=== PATIENT | female | born 1980 | race Asian ===

== ENCOUNTER 2019-03-06 19:20 | Emergency (ER) | payer OTHER ==
[~2019-03-06] VITALS: Ht 160 cm; Wt 90.7 kg
[~2019-03-06 19:20] MED LIST: NAUSEA MEDICATION PO; PRENATABS RX T1 EACH PO
[2019-03-06] MEDS ORDERED: CEFTRIAXONE SOD 1 GM VIAL IV ONE (19:45)
[2019-03-06] MEDS ORDERED: CEFTRIAXONE SOD 1 GM/NS 50 ML 50 ML IV ONE (19:45)
[2019-03-06 19:48] LABS: BASOPHILS # (AUTO) 0.1 (0.0-0.1); BASOPHILS % 0.4 % (0.0-1.0); EOSINOPHILS # (AUTO) 0.4 (0.0-0.4); EOSINOPHILS % 1.8 % (0.0-6.0); HEMATOCRIT 43.5 % (34.2-44.1); HEMOGLOBIN 14.7 g/dL (12.0-16.0); LYMPHOCYTES # (AUTO) 1.9 (1.0-3.2); LYMPHOCYTES % 9.1 % (18.0-39.1); MEAN CORPUSCULAR HEMOGLOBIN 25.9 pg (28-32); MEAN CORPUSCULAR HGB CONC 33.8 g/dL (31-35); MEAN CORPUSCULAR VOLUME 76.6 fL (81-99); MONOCYTES # (AUTO) 0.9 (0.2-0.8); MONOCYTES % 4.3 % (4.4-11.3); NEUTROPHILS # (AUTO) 17.4 (2.1-6.9); NEUTROPHILS % 83.7 % (38.7-80.0); PLATELET COUNT 358 x10e3/uL (140-360); RED BLOOD COUNT 5.68 x10e6/uL (3.6-5.1); RED CELL DISTRIBUTION WIDTH 12.7 % (11.7-14.4)
[2019-03-06] MEDS ORDERED: SODIUM CHLORIDE 0.9% 1000ML 1,000 ML IV STA (19:56)
--- NOTE | 2019-03-06 20:01 | NUR ---
rec'd pt in rm 7 with c/o "i have blood in my urine." placed on the monitor and iv access established. bed low/locked and pt has call espino in hand
[2019-03-06 20:04] LABS: BILIRUBIN,URINE NEGATIVE (NEGATIVE); CLARITY,URINE CLOUDY (CLEAR); COLOR,URINE ORANGE (YELLOW); KETONES,URINE TRACE (NEGATIVE); LEUKOCYTE ESTERASE ,URINE SMALL (NEGATIVE); NITRITE,URINE POSITIVE (NEGATIVE); URINE UROBILINOGEN 4 mg/dL (0.2 - 1)
[2019-03-06 20:07] LABS: ALANINE AMINOTRANSFERASE 44 IU/L (0-55); ALBUMIN 4.3 g/dL (3.5-5.0); ALKALINE PHOSPHATASE 124 IU/L (40-150); BLOOD UREA NITROGEN 11 mg/dL (7-26); BUN/CREATININE RATIO 14 (6-25); CALCIUM 10.4 mg/dL (8.4-10.2); CARBON DIOXIDE 22 mmol/L (22-29); CHLORIDE 100 mmol/L (98-107); CREATININE, SERUM 0.81 mg/dL (0.57-1.11); EST GLOMERULAR FILTRATION RATE > 60 ML/MIN (60-); GLUCOSE 214 mg/dL (74-118); SODIUM 136 mmol/L (136-145)
--- NOTE | 2019-03-06 20:07 | NUR ---
meds given per md's orders and pt has tolerated well
[2019-03-06 20:09] LABS: PROTEIN,URINE DIPSTICK 2+ (NEGATIVE)
[2019-03-06 20:17] LABS: BACTERIA,URINE FEW /HPF; EPITHELIAL CELLS,URINE FEW /LPF; RBC,URINE >50 /HPF (0-5); WBC,URINE (MAN) >50 /HPF (0-5)
--- NOTE | 2019-03-06 20:30 | NUR ---
pt able to ambulate to the br and back to room 7 with a steady gait
--- NOTE | 2019-03-06 21:42 | NUR ---
resting in bed with no s/s of distress. updated on poc/pending ordrs
[2019-03-06] MEDS ORDERED: IOPAMIDOL 370 MG/ML 200 ML INFUS..BTL INJ ONE (22:08)
[2019-03-06] MEDS ORDERED: SODIUM CHLORIDE 0.9% 50ML 50 ML ONE (22:08)
--- NOTE | 2019-03-06 22:45 | Diagnostic Imaging Report ---
EXAM: CT Abdomen and Pelvis WITH contrast INDICATION: Blood in urine ^wbc 20 ^[id number] ^2204 COMPARISON: None. TECHNIQUE: Abdomen and pelvis were scanned utilizing a multidetector helical scanner from the lung base to the pubic symphysis after administration of IV contrast. Coronal and sagittal reformations were obtained. Dose modulation, iterative reconstruction, and/or weight based adjustment of the mA/kV was utilized to reduce the radiation dose to as low as reasonably achievable. Routine protocol was performed. Scan was performed when during portal venous phase. IV CONTRAST: 150 mL of Omnipaque 300 ORAL CONTRAST: Water COMPLICATIONS: None RADIATION DOSE: Total DLP: 813.25 mGy*cm Estimated effective dose: (DLP x 0.015 x size factor) mSv CTDIvol has been reviewed. It is below the limits set by the Radiation Protocol Committee (RPC). FINDINGS: LINES and TUBES: None. LOWER THORAX: Unremarkable HEPATOBILIARY: Hepatic steatosis. Hepatomegaly. Ill-defined subcentimeter right hepatic lobe hypodensities are too small to characterize (series 2, image 33 and 22). No hepatic mass. No biliary ductal dilation. GALLBLADDER: Gallbladder is filled with gallstones. No wall thickening. SPLEEN: No splenomegaly. PANCREAS: No focal masses or ductal dilatation. ADRENALS: No adrenal nodules KIDNEYS/URETERS: Kidneys enhance symmetrically. No hydronephrosis. No cystic or solid mass lesions. Right midpole subcentimeter hypodensity is too small to characterize. No stones. GI TRACT: No abnormal distention, wall thickening, or evidence of bowel obstruction. Appendix is normal. PELVIC ORGANS/BLADDER: Bladder wall thickening and perivesical fat stranding. Hysterectomy. LYMPH NODES: No lymphadenopathy. VESSELS: Unremarkable. PERITONEUM / RETROPERITONEUM: No free air or fluid. BONES: Unremarkable. SOFT TISSUES: Abdominal wall eventration and small fat-containing supraumbilical hernia. IMPRESSION: 1. Bladder wall thickening and mild perivesical fat stranding, representing cystitis. 2. Enlarged steatotic liver. 3. Gallbladder filled with gallstones. No additional signs of cholecystitis. Signed by: Dr. Isidoro Boggs MD on 03/06/2019 10:42 PM
--- NOTE | 2019-03-06 22:52 | NUR ---
PT TO BE DC'D HOME PER DR. SEGUNDO.
--- NOTE | 2019-03-06 23:03 | NUR ---
REPORTED OFF TO DAVID VILLAGOMEZ RN FOR CONTINUITY OF CARE.
[2019-03-06] MEDS ORDERED: PYRIDIUM100 MG PO (23:46)
[2019-03-06] MEDS ORDERED: KEFLEX500 MG PO (23:46)
[2019-03-07 00:29] VITALS: BP 101/63
[2019-03-07] MEDS ORDERED: PHENAZOPYRIDINE HCL 100 MG TAB PO SCH (09:00)
== END 2019-03-07 00:04 | disposition home or self-care (01) ==
LOC: ER 19:20
DX: R30.0 Dysuria (principal); R31.9 Hematuria, unspecified; D72.829 Elevated white blood cell count, unspecified
CPT/HCPCS: 36415; 74177; 80053; 81001; 81025; 85025; 87086; 99284; J0696; J7030; Q9967

== ENCOUNTER 2020-02-13 20:38 | Inpatient (IN) | payer OTHER ==
[~2020-02-13] VITALS: Ht 157.5 cm; Wt 80.9 kg
[~2020-02-13 20:38] MED LIST changes: +KEFLEX500 MG PO; +PYRIDIUM100 MG PO
--- OUTSIDE RECORDS SUMMARY | 2020-02-13 20:42 | XMS REPORT ---
Author Author [facility] t Organization [facility] Address [address] [place] [address] Phone Unavailable Care Team Providers Care Engraving Patternmaker Name Role Phone NO, PCP PCP Unavailable Shabnam ACOSTA Unavailable Payers Payer Name Policy Type Policy Number Effective Date Expiration Date Shabnam arcos [facility] [id number] [facility] Problems Condition Name Condition Details Condition Category Status Onset Date Resolution Date Last Treatment Date Treating Clinician Comments Source Upper respiratory infection Upper respiratory infection Problem Active [facility] Allergies, Adverse Reactions, Alerts This patient has no known allergies or adverse reactions. Medications Ordered Medication Name Filled Medication Name Start Date Stop Da te Current Medication? Ordering Clinician Indication Dosage Frequency Signature (SIG) Comments Components Source Cephalexin Monohydrate (Keflex) 500 Mg Capsule Cephale heri Monohydrate (Keflex) 500 Mg Capsule 2019-03-06 00:00:00 Yes Krishna Acosta Md 50 0 Every 6 Hours [facility] Phenazopyridine Hcl (Pyridium) 100 Mg Tablet Phenazopy ridine Hcl (Pyridium) 100 Mg Tablet 2019-03-06 00:00:00 Yes Krishna Acosta Md 100 Three Times A Day [facility] Nausea Medication Nausea Medication Yes [facility] Vit #76/Iron,Carb/Fa (Prenatabs Rx Tablet) 1 Each Tablet Vit #76/Iron,Carb/Fa (Prenatabs Rx Tablet) 1 Each Tablet Yes Daily [facility] Procedures Procedure Date / Time Performed Performing Clinician Sour e Computed tomography of abdomen and pelvis with contrast 2018 00:00:00 KRISHNA ACOSTA [facility] Encounters Start Date/Time End Date/Time En[facility] Ad[facility] ID Source 2019-03-06:20:00 2019-03-07 00:04:00 Departed Emergency Room 1 KRISHNA ACOSTA [facility] [id number] [facility] Results Test Description Test Time Test Comments Results Result Comments Source CT ABDOMEN/PELVIS W 2019-03-06 22:33:00 [facility] [address] [address] Patient Name: ULISSES RÍOS MR #: [id number] : 1980 Age/Sex: 38/F Req #: [id number] Adm Physician: Ordered by: KRISHNA ACOSTA MD Report #: [id number] Location: ER Room/Bed: Procedure: [id number] CT/CT ABDOMEN/PELVIS W Exam Date: 03/06/19 Exam Time: 2203 REPORT STATUS: Signed EXAM: CT Abdomen and Pelvis WITH contrast INDICATION: Blood in urine wbc [id number] COMPARISON: None. TECHNIQUE: Abdomen and pelvis were scanned utilizing a multidetector helical scanner from the lung base to the pubic symphysis after administration of IV contrast. Coronal and sagittal reformations were obtained. Dose modulation, iterative reconstruction, and/or weight based adjustment of the mA/kV was utilized to reduce the radiation dose to as low as reasonably achievable. Routine protocol was performed. Scan was performed when during portal venous phase. IV CONTRAST: 150 mL of Omnipaque 300 ORAL CONTRAST: Water COMPLICATIONS: None RADIATION DOSE: Total DLP: 813.25 mGy*cm Estimated effective dose: (DLP x 0.015 x size factor) mSv CTDIvol has been reviewed. It is below the limits set by the Radiation Protocol Committee (RPC). FINDINGS: LINES and TUBES: None. LOWER THORAX: Unremarkable HEPATOBILIARY: Hepatic steatosis. Hepatomegaly. Ill-defined subcentimeter right hepatic lobe hypodensities are too small to characterize (series 2, image 33 and 22). No hepatic mass. No biliary ductal dilation. GALLBLADDER: Gallbladder is f illed with gallstones. No wall thickening. SPLEEN: No splenomegaly. PANCREAS: No focal masses or ductal dilatation. ADRENALS: No adrenal nodules KIDNEYS/URETERS: Kidneys enhance symmetrically. No hydronephrosis. No cystic or solid mass lesions. Right midpole subcentimeter hypodensity is too small to characterize. No stones. GI TRACT: No abnormal distention, wall thickening, or evidence of bowel obstruction. Appendix is normal. PELVIC ORGANS/BLADDER: Bladder wall thickening and perivesical fat stranding. Hysterectomy. LYMPH NODES: No lymphadenopathy. VESSELS: Unremarkable. PERITONEUM / RETROPERITONEUM: No free air or fluid. BONES: Unremarkable. SOFT TISSUES: Abdominal wall eventration and small fat-containing supraumbilical hernia. IMPRESSION: 1. Bladder wall thickening and mild perivesical fat stranding, representing cystitis. 2. Enlarged steatotic liver. 3. Gallbladder filled with gallst ones. No additional signs of cholecystitis. Signed by: Dr. Isidoro Morgan MD on 03/06/2019 10:42 PM Dictated By: ISIDORO MORGAN MD 41 Transcribed By: SHARMILA on 03/06/192241 COPY TO: KRISHNA ACOSTA MD Urine Test 2019-03-06 22:06:00 Test Item Urine Test (test code = 2106-3) NEGATIVE NEGATIVE [facility] [id number] 20:17:00* Test Item Value Reference Range Interpretation Comments Urine WBC (test code = 5821-4) >50 0-5 H [facility]Allen[facility] [id number] 20:17:00* Test Item Value Reference Range Interpretation Comments Urine RBC (test code = 28293-8) >50 0-5 H [facility] [id number] 20:17:00* Test Item Value Reference Range Interpretation Comments Urine Bacteria (test code = 63197-2) FEW NONE [facility] Epithelial [id number] 20:17:00 * Test Item Value Reference Range Interpretation Comments Urine Epithelial Cells (test code = 52148-1) [facility]W [facility]ONE [facility] Bnvsi4826-74-29 20:10:00* Test Item Value Reference Range Interpretation Comments Sodium Level (test code = 2951-2) 136 136-145 [facility]Potassium Acdkk3511-91-95 20:10:00* Test Item Value Reference Range Interpretation Comments Potassium Level (test code = 2823-3) 4.0 3.5-5.1 [facility]AllenChloride Lqjfy3528-50-18 20:10:00* Test Item Value Reference Range Interpretation Comments Chloride Level (test code = 2075-0) 100 98-107 [facility]AllenCarbon Dioxide [id number] 20:10:00* Test Item Value Reference Range Interpretation Comments Carbon Dioxide Level (test code = 2028-9) 22 22-29 [facility]AllenAnion [id number] 20:10:00* Test Item Value Reference Range Interpretation Comments Anion Gap (test code = 94648-7) 18.0 8-16 H [facility]AllenBlood Urea Jjbpbefv1849-24-76 20:10:00* Test Item Value Reference Range Interpretation Comments Blood Urea Nitrogen (test code = 3094-0) 11 7-26 [facility]AllenCreatinine2019-06-19 20:10:00* Test Item Value Reference Range Interpretation Comments Creatinine (test code = 2160-0) 0.81 0.57-1.11 [facility]AllenBUN/Creatinine Fzzvi2282-19-20 20:10:00* Test Item Value Reference Range Interpretation Comments BUN/Creatinine Ratio (test code = 3097-3) 14 6-25 [facility]AllenEstimat Glomerular Filtration Rate 2019-03-06 20:10:00* Test Item Value Reference Range Interpretation Comments Estimat Glomerular Filtration Rate (test code = 793310327) > 60 >60 Ranges were taken from the National Kidney Disease Education Program and the [facility] literature.Reference ranges:60 or greater: Ccaeyj36-63 ( for 3 consecutive months): Chronic kidney disease 15 or less: Kidney failureSouth [facility] Health System McAllenGlucose Wgxhm8545-57-04 20:10:00* Test Item Value Reference Range Interpretation Comments Glucose Level (test code = IRW7459) 214 74-118 H [facility]AllenCalcium Zasts7000-69-43 20:10:00* Test Item Value Reference Range Interpretation Comments Calcium Level (test code = 43807-0) 10.4 8.4-10.2 H [facility]AllenTotal Qeluusawz6932-20-43 20:10:00* Test Item Value Reference Range Interpretation Comments Total Bilirubin (test code = 1975-2) 0.4 0.2-1.2 [facility] McAllenAspartate Amino Transf (AST/SGOT) 2019-03-06 20:10:00* Test Item Value Reference Range Interpretation Comments Aspartate Amino Transf (AST/SGOT) (test code = Aspartate Amino Transf (AST/SGOT)) 31 5-34 [facility]AllenAlanine Aminotransferase (ALT/SGPT) 2019-03-06 20:10:00* Test Item Value Reference Range Interpretation Comments Alanine Aminotransferase (ALT/SGPT) (test code = 1742-6) 44 0-55 [facility]AllenTotal Pbmbzes9167-55-03 20:10:00* Test Item Value Reference Range Interpretation Comments Total Protein (test code = 2885-2) 8.4 6.5-8.1 H [facility] McAllenAlbumin2019-06-19 20:10:00* Test Item Value Reference Range Interpretation Comments Albumin (test code = 1751-7) 4.3 3.5-5.0 [facility]AllenGlobulin2019-06-19 20:10:00* Test Item Value Reference Range Interpretation Comments Globulin (test code = 29455-7) 4.1 2.3-3.5 H [facility]AllenAlbumin/Globulin Amezs3507-85-25 20:10:00 * Test Item Value Reference Range Interpretation Comments Albumin/Globulin Ratio (test code = 1759-0) 1.0 0.8-2.0 [facility]AllenAlkaline Hgmbuxlmhya0441-46-57 20:10:00* Test Item Value Reference Range Interpretation Comments Alkaline Phosphatase (test code = 6768-6) 124 40-150 [facility]AllenUrine Ekvoo8967-27-53 20:09:00* Test Item Value Reference Range Interpretation Comments Urine Color (test code = 5778-6) ORANGE YELLOW H [facility] McAllenUrine Gkxqexf8290-50-18 20:09:00* Test Item Value Reference Range Interpretation Comments Urine Clarity (test code = 07851-9) CLOUDY CLEAR H [facility] McAllenUrine Specific Vursyei6656-68-65 20:09:00 * Test Item Value Reference Range Interpretation Comments Urine Specific Cherry (test code = 5811-5) 1.010 1.010-1.02 5 [facility]AllenUrine [id number] 20:09:00* Test Item Value Reference Range Interpretation Comments Urine pH (test code = 91741-5) 6.5 5-7 [facility]AllenUrine Leukocyte Fheuqedq3536-14-36 20:09:00* Test Item Value Reference Range Interpretation Comments Urine Leukocyte Esterase (test code = 81015-3) SMALL NEGATIV E [facility]AllenUrine Fdmrdty7913-84-27 20:09:00* Test Item Value Reference Range Interpretation Comments Urine Nitrite (test code = 77209-9) POSITIVE NEGATIVE H [facility]AllenUrine Cdqvkfb9971-72-25 20:09:00* Test Item Value Reference Range Interpretation Comments Urine Protein (test code = 37323-8) 2+ NEGATIVE H [facility] McAllenUrine Glucose (UA)2019-03-06 20:09:00* Test Item Value Reference Range Interpretation Comments Urine Glucose (UA) (test code = 48455-0) 1+ NEGATIVE H [facility]AllenUrine Bmyrsao3824-74-75 20:09:00* Test Item Value Reference Range Interpretation Comments Urine Ketones (test code = 12624-4) TRACE NEGATIVE H [facility]AllenUrine Cbhzqpubmokt3073-59-73 20:09:00* Test Item Value Reference Range Interpretation Comments Urine Urobilinogen (test code = 59438-3) 4 0.2-1 [facility]AllenUrine Qknuaiapd4818-67-96 20:09:00* Test Item Value Reference Range Interpretation Comments Urine Bilirubin (test code = 1977-8) NEGATIVE NEGATIVE [facility]AllenUrine Xnmdg8791-93-51 20:09:00* Test Item Value Reference Range Interpretation Comments Urine Blood (test code = 97844-9) 3+ NEGATIVE [facility] McAllenWhite Blood Pzgyw8439-30-86 19:49:00* Test Item Value Reference Range Interpretation Comments White Blood Count (test code = 6690-2) 20.82 4.8-10.8 H [facility] McAllenRed Blood Ncjyi3439-27-25 19:49:00* Test Item Value Reference Range Interpretation Comments Red Blood Count (test code = 789-8) 5.68 3.6-5.1 H [facility]AllenHemoglobin2019-06-19 19:49:00* Test Item Value Reference Range Interpretation Comments Hemoglobin (test code = 22218-2) 14.7 12.0-16.0 [facility]AllenHematocrit2019-06-19 19:49:00* Test Item Value Reference Range Interpretation Comments Hematocrit (test code = 4544-3) 43.5 34.2-44.1 [facility] McAllenMean Corpuscular Xuoiez5274-10-66 19:49:00* Test Item Value Reference Range Interpretation Comments Mean Corpuscular Volume (test code = 787-2) 76.6 81-99 L [facility] McAllenMean Corpuscular Baqzfsbdsa7653-68-26 19:49:00* Test Item Value Reference Range Interpretation Comments Mean Corpuscular Hemoglobin (test code = 785-6) 25.9 28-32 L [facility] McAllenMean Corpuscular Hemoglobin Concent 2019-03-06 19:49:00* Test Item Value Reference Range Interpretation Comments Mean Corpuscular Hemoglobin Concent (test code = 786-4) 33.8 31-35 [facility] McAllenRed Cell Distribution Zotaa2376-97-37 19:49:00* Test Item Value Reference Range Interpretation Comments Red Cell Distribution Width (test code = 45451-1) 12.7 11.7 -14.4 [facility] McAllenPlatelet Xiqov5492-32-56 19:49:00* Test Item Value Reference Range Interpretation Comments Platelet Count (test code = 777-3) 358 140-360 [facility]AllenNeutrophils (%) (Auto)2019-03-06 19:49:00 * Test Item Value Reference Range Interpretation Comments Neutrophils (%) (Auto) (test code = 34236-4) 83.7 38.7-80.0 H [facility] McAllenLymphocytes (%) (Auto)2019-03-06 19:49:00 * Test Item Value Reference Range Interpretation Comments Lymphocytes (%) (Auto) (test code = 736-9) 9.1 18.0-39.1 L [facility] McAllenMonocytes (%) (Auto)2019-03-06 19:49:00* Test Item Value Reference Range Interpretation Comments Monocytes (%) (Auto) (test code = 5905-5) 4.3 4.4-11.3 L [facility]AllenEosinophils (%) (Auto)2019-03-06 19:49:00 * Test Item Value Reference Range Interpretation Comments Eosinophils (%) (Auto) (test code = 713-8) 1.8 0.0-6.0 [facility]AllenBasophils (%) (Auto)2019-03-06 19:49:00* Test Item Value Reference Range Interpretation Comments Basophils (%) (Auto) (test code = 706-2) 0.4 0.0-1.0 [facility] McAllenIM GRANULOCYTES %2019-03-06 19:49:00* Test Item Value Reference Range Interpretation Comments IM GRANULOCYTES % (test code = IM GRANULOCYTES %) 0.7 0.0- 1.0 [facility]AllenNeutrophils # (Auto)2019-03-06 19:49:00* Test Item Value Reference Range Interpretation Comments Neutrophils # (Auto) (test code = 751-8) 17.4 2.1-6.9 H [facility]AllenLymphocytes # (Auto)2019-03-06 19:49:00* Test Item Value Reference Range Interpretation Comments Lymphocytes # (Auto) (test code = 31871-6) 1.9 1.0-3.2 [facility]AllenMonocytes # (Auto)2019-03-06 19:49:00* Test Item Value Reference Range Interpretation Comments Monocytes # (Auto) (test code = 742-7) 0.9 0.2-0.8 H [facility]AllenEosinophils # (Auto)2019-03-06 19:49:00* Test Item Value Reference Range Interpretation Comments Eosinophils # (Auto) (test code = 711-2) 0.4 0.0-0.4 [facility]AllenBasophils # (Auto)2019-03-06 19:49:00* Test Item Value Reference Range Interpretation Comments Basophils # (Auto) (test code = 704-7) 0.1 0.0-0.1 [facility] McAllenAbsolute Immature Granulocyte (auto 2019-03-06 19:49:00* Test Item Value Reference Range Interpretation Comments Absolute Immature Granulocyte (auto (gary t code = Absolute Immature Granulocyte (auto) 0.15 0-0.1 H [facility]
[2020-02-13] MEDS ORDERED: SODIUM CHLORIDE 0.9% 1000ML 1,000 ML IV STA (20:55)
[2020-02-13] MEDS ORDERED: PIPER-TAZ 3.375 GM 50 ML IV ONE (20:55)
[2020-02-13] MEDS ORDERED: SODIUM CHLORIDE 0.9% 1000ML 1,000 ML IV SCH (21:00)
[2020-02-13] MEDS ORDERED: SODIUM CHLORIDE 0.9% 1000ML 1,000 ML ONE (21:04)
[2020-02-13 21:14] LABS: BASOPHILS # (AUTO) 0.1 (0.0-0.1); BASOPHILS % 0.3 % (0.0-1.0); EOSINOPHILS # (AUTO) 0.2 (0.0-0.4); EOSINOPHILS % 1.1 % (0.0-6.0); HEMATOCRIT 42.2 % (34.2-44.1); LYMPHOCYTES # (AUTO) 1.9 (1.0-3.2); LYMPHOCYTES % 10.1 % (18.0-39.1); MEAN CORPUSCULAR HEMOGLOBIN 24.8 pg (28-32); MEAN CORPUSCULAR HGB CONC 33.2 g/dL (31-35); MEAN CORPUSCULAR VOLUME 74.8 fL (81-99); MONOCYTES # (AUTO) 0.9 (0.2-0.8); MONOCYTES % 4.8 % (4.4-11.3); NEUTROPHILS # (AUTO) 15.4 (2.1-6.9); NEUTROPHILS % 83.1 % (38.7-80.0); PLATELET COUNT 366 x10e3/uL (140-360); RED BLOOD COUNT 5.64 x10e6/uL (3.6-5.1); RED CELL DISTRIBUTION WIDTH 12.4 % (11.7-14.4)
[2020-02-13] MEDS ORDERED: ONDANSETRON HCL INJ 2MG/ML 2ML 2 MG/ML VIAL IV ONE (21:14)
[2020-02-13] MEDS ORDERED: MORPHINE SULFATE 5 MG/ML VIAL IV ONE (21:15)
[2020-02-13] MEDS ORDERED: MORPHINE SULFATE INJ 4 MG/ML INJ 1ML IV ONE (21:30)
[2020-02-13 21:33] LABS: ALANINE AMINOTRANSFERASE 30 IU/L (0-55); ALBUMIN/GLOBULIN RATIO 1.1 (0.8-2.0); ALKALINE PHOSPHATASE 112 IU/L (40-150); ANION GAP 15.9 mmol/L (8-16); BLOOD UREA NITROGEN 9 mg/dL (7-26); BUN/CREATININE RATIO 12 (6-25); CALCIUM 9.7 mg/dL (8.4-10.2); CARBON DIOXIDE 21 mmol/L (22-29); CHLORIDE 104 mmol/L (98-107); CREATINE KINASE 45 IU/L (29-168); CREATININE, SERUM 0.73 mg/dL (0.57-1.11); EST GLOMERULAR FILTRATION RATE > 60 ML/MIN (60-); GLUCOSE 181 mg/dL (74-118); POTASSIUM 3.9 mmol/L (3.5-5.1); SODIUM 137 mmol/L (136-145)
--- NOTE | 2020-02-13 22:05 | Emergency Department Note ---
History of Present Illnes History of Present Illness Chief Complaint: Abdominal Complaints History of Present Illness This is a 39 year old female arrived to the ED with complaints of diffuse abdominal pain localized to RUQ. Historian: Patient Arrival Mode: Car Hot Car Charger Required: No Radiation: abdomen Severity: severe Onset quality: gradual Duration (how long): hour(s) Timing of current episode: constant Progression: worsening Relieving factors: none Exacerbating factors: none Associated symptoms: loss of appetite, malaise Past Medical/Family History Physician Review I have reviewed the patient's past medical and family history. Any updates have been documented here. Past Medical History Recent Fever: No Clinical Suspicion of Infectio: No New/Unexplained Change in Ment: No Past Medical History: Cancer Other Medical History: OVARIAN CA Past Surgical History: Hysterectomy, Social History Smoking Cessation: Never Smoker Alcohol Use: None Any Illegal Drug Use: No TB Exposure/Symptoms: No Physically hurt or threatened: No Other Last Tetanus: UTD Any Pre-Existing Lines (PICC,: No Is patient up to date on immun: Yes Last Flu: UTD Last Pneumovax: UTD Review of Systems Review of Systems Constitutional: weakness EENTM: no symptoms Cardiovascular: no symptoms Respiratory: no symptoms Gastrointestinal: abdominal pain, nausea Genitourinary: no symptoms Musculoskeletal: no symptoms Neurological: no symptoms Psychological: no symptoms Endocrine: no symptoms Hematological/Lymphatic: no symptoms Review of other systems All other systems reviewed and negative. Physical Exam Related Data Allergies: Coded Allergies: No Known Allergies (Unverified , 05/04/15) Triage Vital Signs Vital Signs Date Time Temp Pulse Resp B/P (MAP) Pulse Ox O2 Delivery O2 Flow Rate FiO2 02/13/20 21:02 98.9 85 36 131/88 100 Vital signs reviewed: Yes Physical Exam CONSTITUTIONAL Constitutional: well-developed, ill appearing HENT HENT: normocephalic, atraumatic, oropharynx clear/moist, nose normal HENT L/R: left ext ear normal, right ext ear normal EYES Eyes: PERRL, conjunctivae normal NECK Neck: ROM normal PULMONARY Pulmonary: effort normal, breath sounds normal CARDIOVASCULAR Cardiovascular: regular rhythm, heart sounds normal, capillary refill normal, normal rate GASTROINTESTINAL Abdominal: soft, bowel sounds normal, tender, other (+midline vertical scar, abdomen soft, tender diffusely) GENITOURINARY Genitourinary: exam deferred SKIN Skin: warm, dry MUSCULOSKELETAL Musculoskeletal: ROM normal NEUROLOGICAL Neurological: alert, oriented x 3, no gross motor or sensory deficits PSYCHOLOGICAL Psychological: mood/affect normal, judgement normal Results Laboratory Result Diagram: 02/13/20210202/13/202102 Laboratory Laboratory Tests Test 02/13/20 21:03 White Blood Count 18.59 x10e3/uL (4.8-10.8) Red Blood Count 5.64 x10e6/uL (3.6-5.1) Hemoglobin 14.0 g/dL (12.0-16.0) Hematocrit 42.2 % (34.2-44.1) Mean Corpuscular Volume 74.8 fL (81-99) Mean Corpuscular Hemoglobin 24.8 pg (28-32) Mean Corpuscular Hemoglobin Concent 33.2 g/dL (31-35) Red Cell Distribution Width 12.4 % (11.7-14.4) Platelet Count 366 x10e3/uL (140-360) Neutrophils (%) (Auto) 83.1 % (38.7-80.0) Lymphocytes (%) (Auto) 10.1 % (18.0-39.1) Monocytes (%) (Auto) 4.8 % (4.4-11.3) Eosinophils (%) (Auto) 1.1 % (0.0-6.0) Basophils (%) (Auto) 0.3 % (0.0-1.0) Neutrophils # (Auto) 15.4 (2.1-6.9) Lymphocytes # (Auto) 1.9 (1.0-3.2) Monocytes # (Auto) 0.9 (0.2-0.8) Eosinophils # (Auto) 0.2 (0.0-0.4) Basophils # (Auto) 0.1 (0.0-0.1) Absolute Immature Granulocyte (auto 0.12 x10e3/uL (0-0.1) Sodium Level 137 mmol/L (136-145) Potassium Level 3.9 mmol/L (3.5-5.1) Chloride Level 104 mmol/L (98-107) Carbon Dioxide Level 21 mmol/L (22-29) Anion Gap 15.9 mmol/L (8-16) Blood Urea Nitrogen 9 mg/dL (7-26) Creatinine 0.73 mg/dL (0.57-1.11) Estimat Glomerular Filtration Rate > 60 ML/MIN (60-) BUN/Creatinine Ratio 12 (6-25) Glucose Level 181 mg/dL (74-118) Lactic Acid Level 1.6 mmol/L (0.5-2.0) Calcium Level 9.7 mg/dL (8.4-10.2) Total Bilirubin 0.7 mg/dL (0.2-1.2) Aspartate Amino Transf (AST/SGOT) 16 IU/L (5-34) Alanine Aminotransferase (ALT/SGPT) 30 IU/L (0-55) Alkaline Phosphatase 112 IU/L (40-150) Creatine Kinase 45 IU/L (29-168) Creatine Kinase MB 0.40 ng/mL (0-5.0) Troponin I 0.003 ng/mL (0-0.300) Total Protein 7.8 g/dL (6.5-8.1) Albumin 4.0 g/dL (3.5-5.0) Globulin 3.8 g/dL (2.3-3.5) Albumin/Globulin Ratio 1.1 (0.8-2.0) Lab results reviewed: Yes Imaging Imaging results reviewed: Yes Impressions IMPRESSION: Acute obstructive calculus cholecystitis. Critical Care Time Total Critical Care Time (min): 35 Critical care time exclusive o: separately billable procedures Critcal care necessary due to: sepsis Subsequent provider I assumed direction of critical care for this patient from another provider of my specialty. Assessment & Plan Reassessment Reassessment time: 22:18 Reassessment Pt re-evaluated at bedside, reports improvement with fluids and pain medication Pt with marked WBC elevation, tachypnea on arrival- concerns of impending sepsis Time of Severe of Sepsis: 2114 Obtained blood cultures, lactic acid Zosyn given Assessment & Plan Final Impression: (1) ACUTE CHOLECYSTITIS (2) SEVERE SEPSIS WITHOUT SEPTIC SHOCK Assessment & Plan cbc, cmp CT AP gen surgery consult Depart Disposition: ADMITTED Last Vital Signs Date Time Temp Pulse Resp B/P (MAP) Pulse Ox O2 Delivery O2 Flow Rate FiO2 02/13/20 21:44 79 17 113/77 98 02/13/20 21:02 98.9 Home Meds Active Scripts Phenazopyridine Hcl (PYRIDIUM) 100 Mg Tablet, 100 MG PO TID for 3 Days, #6 Prov:RATNA KRISHNA, 03/06/19 Cephalexin Monohydrate (KEFLEX) 500 Mg Capsule, 500 MG PO Q6HR for 10 Days, #40 Prov:KRISHNA SEGUNDO, 03/06/19 Reported Medications [Nausea Medication] No Conflict Check, P PO 02/09/15 Vit #76/Iron,Carb/Fa (PRENATABS RX TABLET) 1 Each Tablet, PO DAILY 02/09/15 Medications in the ED Sodium Chloride 1,000 ml @ ud STK-MED ONCE .ROUTE ; Start 02/13/20 at 21:04; Stop 02/13/20 at 20:58; Status DC Sodium Chloride 1,000 ml @ 0 mls/hr Q0M STAT IV Last administered on 02/13/20at 21:05; Admin Dose 999 MLS/HR; Start 02/13/20 at 20:55; Stop 02/13/20 at 21:01; Status DC Sodium Chloride 1,000 ml @ 0 mls/hr Q0M IV Last administered on 02/13/20at 21:43; Admin Dose 999 MLS/HR; Start 02/13/20 at 21:00; Stop 03/14/20 at 20:59 Piperacillin Sod/ Tazobactam Sod 50 ml @ 50 mls/hr NOW ONCE IV Last administered on 02/13/20at 21:43; Admin Dose 50 MLS/HR; Start 02/13/20 at 20:55; Stop 02/13/20 at 21:54; Status DC Morphine Sulfate 6 mg ONCE ONCE IV ; Start 02/13/20 at 21:15; Stop 02/13/20 at 21:18; Status DC Ondansetron HCl 4 mg NOW ONCE IV Last administered on 02/13/20at 21:43; Admin Dose 4 MG; Start 02/13/20 at 21:14; Stop 02/13/20 at 21:17; Status DC Morphine Sulfate 6 mg ONCE ONCE IV Last administered on 02/13/20at 21:43; Admin Dose 6 MG; Start 02/13/20 at 21:30; Stop 02/13/20 at 21:31; Status DC KRISHNA SEGUNDO DO February 13, 2020 22:05
[2020-02-13 22:19] LABS: BILIRUBIN,URINE NEGATIVE (NEGATIVE); CLARITY,URINE SL CLOUDY (CLEAR); COLOR,URINE YELLOW (YELLOW); KETONES,URINE 1+ (NEGATIVE); LEUKOCYTE ESTERASE ,URINE NEGATIVE (NEGATIVE); NITRITE,URINE NEGATIVE (NEGATIVE); PROTEIN,URINE DIPSTICK NEGATIVE (NEGATIVE); URINE UROBILINOGEN 0.2 mg/dL (0.2 - 1)
[2020-02-13 22:26] LABS: BACTERIA,URINE FEW /HPF; EPITHELIAL CELLS,URINE FEW /LPF
[2020-02-14] VITALS (8 sets, daily range): BP systolic 105–124; BP diastolic 66–89
--- NOTE | 2020-02-14 00:40 | Diagnostic Imaging Report ---
EXAM: CT Abdomen and Pelvis WITH contrast INDICATION: Abdominal pain COMPARISON: Abdominal CT 03/06/2019. TECHNIQUE: Abdomen and pelvis were scanned utilizing a multidetector helical scanner from the lung base to the pubic symphysis after administration of IV contrast. Coronal and sagittal reformations were obtained. Routine protocol was performed. Scan was performed when during portal venous phase. IV CONTRAST: 100 mL of Isovue 370 ORAL CONTRAST: None COMPLICATIONS: None RADIATION DOSE: Total DLP: 699 mGy*cm Estimated effective dose: (DLP x 0.015 x size factor) mSv CTDIvol has been reviewed. It is below the limits set by the Radiation Protocol Committee (RPC). Dose modulation, iterative reconstruction, and/or weight based adjustment of the mA/kV was utilized to reduce the radiation dose to as low as reasonably achievable. FINDINGS: LINES and TUBES: None. LOWER THORAX: Unremarkable HEPATOBILIARY: Hyperemia of hepatic parenchyma about the gallbladder fossa. Tiny hypodensity in the inferior right hepatic lobe unchanged compared to 03/06/2019, likely benign. No biliary ductal dilation. GALLBLADDER: The gallbladder is hydropic, 4.3 cm in diameter, with wall thickening and pericholecystic fat stranding. Numerous gallstones and including gallstones at the gallbladder neck. SPLEEN: No splenomegaly. PANCREAS: No focal masses or ductal dilatation. ADRENALS: No adrenal nodules KIDNEYS/URETERS: Kidneys enhance symmetrically. No hydronephrosis. No cystic or solid mass lesions. No stones. GI TRACT: No abnormal distention, wall thickening, or evidence of bowel obstruction. Appendix is normal. PELVIC ORGANS/BLADDER: Hysterectomy. No adnexal masses. Urinary bladder unremarkable. LYMPH NODES: No lymphadenopathy. VESSELS: Unremarkable. PERITONEUM / RETROPERITONEUM: Trace fluid in the pelvis. No free air. BONES: Unremarkable. SOFT TISSUES: There is a fat containing para-umbilical hernia. Infraumbilical incision scar intact. IMPRESSION: Acute obstructive calculus cholecystitis. Signed by: Tom Esparza DO on 02/14/2020 12:37 AM
[2020-02-14] MEDS ORDERED: SODIUM CHLORIDE 0.9% 50ML 50 ML ONE ×2 (00:42→04:38)
[2020-02-14] MEDS ORDERED: IOPAMIDOL 370 MG/ML 200 ML INFUS..BTL INJ ONE (00:42)
[2020-02-14] MEDS ORDERED: FENTANYL CITRATE/PF 100MCG/2 ML INJ IV ONE (00:45)
[2020-02-14] MEDS ORDERED: LEVOFLOXACIN 500MG/D5W 100ML IV SCH (02:00)
--- OUTSIDE RECORDS SUMMARY | 2020-02-14 02:08 | XMS REPORT ---
Author Author [facility] Organization [facility] Address [address] [place] [address] Phone Unavailable Care Team Providers Care Classroom Technology Coach Name Role Phone NO, PCP PCP Unavailable Shabnam SEGUNDO Attapryl Unavailable Payers Payer Name Policy Type Policy Number Effective Date Expiration Date [facility] [id number] [facility] Problems Condition Name Condition Details Condition Category Status Onset Date Resolution Date Last Treatment Date Treating Clinician Comments Source Upper respiratory infection Upper respiratory infection Problem Active [facility] Allergies, Adverse Reactions, Alerts This patient has no known allergies or adverse reactions. Medications Ordered Medication Name Filled Medication Name Start Date Stop Da te Current Medication? Ordering Clinician Indication Dosage Frequency Signature (SIG) Comments Components Source Cephalexin Monohydrate (Keflex) 500 Mg Capsule Cephale heri Monohydrate (Keflex) 500 Mg Capsule 2019-03-06 00:00:00 Yes Krishna Acosta Md [address] [facility] Phenazopyridine Hcl (Pyridium) 100 Mg Tablet Phenazopy ridine Hcl (Pyridium) 100 Mg Tablet 2019-03-06 00:00:00 Yes Krishna Acosta Md [address] [facility] Nausea Medication Nausea Medication Yes [facility] Vit #76/Iron,Carb/Fa (Prenatabs Rx Tablet) 1 Each Tablet Vit #76/Iron,Carb/Fa (Prenatabs Rx Tablet) 1 Each Tablet Yes Daily [facility] Procedures Procedure Date / Time Performed Performing Clinician Sour e Computed tomography of abdomen and pelvis with contrast 2018 00:00:00 KRISHNA ACOSTA [facility] Encounters Start Date/Time End Date/Time En[facility] Ad[facility] ID Source 2019-03-06:20:00 2019-03-07 00:04:00 Departed Emergency Room 1 KRISHNA ACOSTA [facility] [id number] [facility] Results Test Description Test Time Test Comments Results Result Comments Source CT ABDOMEN/PELVIS W 2020-02-14 00:33:00 [facility] [address] [address] Patient Name: ULISSES RÍOS MR #: [id number] : 1980 Age/Sex: 39/F Req #: [id number] Adm Physician: Ordered by: KRISHNA SEGUNDO DO Report #: [id number] Location: ER Room/Bed: Procedure: [id number] CT/CT ABDOMEN/PELVIS W Exam Date: 02/13/20 Exam Time: 2244 REPORT STATUS: Signed EXAM: CT Abdomen and Pelvis WITH contrast INDICATION: Abdominal pain COMPARISON: Abdominal CT 03/06/2019. TECHNIQUE: Abdomen and pelvis were scanned utilizing a multidetector helical scanner from the lung base to the pubic symphysis after administration of IV contrast. Coronal and sagittal reformations were obtained. Routine protocol was performed. Scan was performed when during portal venous phase. IV CONTRAST: 100 mL of Isovue 370 ORAL CONTRAST: None COMPLICATIONS: None RADIATION DOSE: Total DLP: 699 mGy*cm Estimated effective dose: (DLP x 0.015 x size factor) mSv CTDIvol has been reviewed. It is below the limits set by the Radiation Protocol Committee (RPC). Dose modulation, iterative reconstruction, and/or weight based adjustment of the mA/kV was utilized to reduce the radiation dose to as low as reasonably achievable. FINDINGS: LINES and TUBES: None. LOWER THORAX: Unremarkable HEPATOBILIARY: Hyperemia of hepatic parenchyma about the gallbladder fossa. Tiny hypodensity in the inferior right hepatic lobe unchanged compared to 03/06/2019, likely benign. No biliary ductal dilation. GALLBLADDER: The gallbladder is hydropic, 4.3 cm in diameter, with wall thickening and pericholecystic fat stranding. Numerous gallstones and including gallstones at the gallbladder neck. SPLEEN: No splenomegaly. PANCREAS: No focal masses or ductal dilatation. ADRENALS: No adrenal nodules KIDNEYS/URETERS: Kidneys enhance symmetrically. No hydronephrosis. No cystic or solid mass lesions. No stones. GI TRACT: No abnormal distention, wall thickening, or evidence of bowel obstruction. Appendix is normal. PELVIC ORGANS/BLADDER: Hysterectomy. No adnexal masses. Urinary bladder unremarkable. LYMPH NODES: No lymphadenopathy. VESSELS: Unremarkable. PERITONEUM / RETROPERITONEUM: Trace fluid in the pelvis. No free air. BONES: Unremarkable. SOFT TISSUES: There is a fat containing para-umbilical hernia. Infraumbilical incision scar intact. IMPRESSION: Acute obstructive calculus cholecystitis. Signed by: Tom Esparza DO on 02/14/2020 12:37 AM Dictated By: TOM ESPARZA DO Transcribed By: SHARMILA on 02/14/2036 COPY TO: KRISHNA SEGUNDO DO CT ABDOMEN/PELVIS W 2019-03-06 22:33:00 [address] [address] Patient Name: ULISSES RÍOS MR #: [id number] : 1980 Age/Sex: 38/F Req #: [id number] Adm Physician: Ordered by: KRISHNA ACOSTA MD Report #: [id number] Location: ER Room/Bed: Procedure: [id number] CT/CT ABDOMEN/PELVIS W Exam Date: 03/06/19 Exam Time: 2203 REPORT STATUS: Signed EXAM: CT Abdomen and Pelvis WITH contrast INDICATION: Blood in urine wbc 20 [id number] COMPARISON: None. TECHNIQUE: Abdomen and pelvis [...] Test (test code = 2106-3) NEGATIVE NEGATIVE [facility] [id number] 20:17:00* Test Item Value Reference Range Interpretation Comments Urine WBC (test code = 5821-4) >50 0-5 H [facility] Center[facility] [id number] 20:17:00* Test Item Value Reference Range Interpretation Comments Urine RBC (test code = 69422-0) >50 0-5 H [facility] Center[facility] Snlvwzcw1114-94-02 20:17:00* Test Item Value Reference Range Interpretation Comments Urine Bacteria (test code = 87068-3) FEW NONE [facility] Epithelial Wguip8837-83-38 20:17:00 * Test Item Value Reference Range Interpretation Comments Urine Epithelial Cells (test code = 54912-6) FEW NONE [facility] Lszcf3441-46-58 20:10:00* Test Item Value Reference Range Interpretation Comments Sodium Level (test code = 2951-2) 136 136-145 [facility] CenterPotassium Uauat4618-42-94 20:10:00* Test Item Value Reference Range Interpretation Comments Potassium Level (test code = 2823-3) 4.0 3.5-5.1 [facility] CenterChloride Ktamj9635-15-70 20:10:00* Test Item Value Reference Range Interpretation Comments Chloride Level (test code = 2075-0) 100 98-107 [facility] CenterCarbon Dioxide Oxjuu7189-28-10 20:10:00* Test Item Value Reference Range Interpretation Comments Carbon Dioxide Level (test code = 2028-9) 22 22-29 [facility] CenterAnion Zbh9263-65-09 20:10:00* Test Item Value Reference Range Interpretation Comments Anion Gap (test code = 35024-1) 18.0 8-16 H [facility] CenterBlood Urea Htsnsdrm7823-96-92 20:10:00* Test Item Value Reference Range Interpretation Comments Blood Urea Nitrogen (test code = 3094-0) 11 7-26 [facility] CenterCreatinine2019-06-19 20:10:00* Test Item Value Reference Range Interpretation Comments Creatinine (test code = 2160-0) 0.81 0.57-1.11 [facility] CenterBUN/Creatinine Dgzca5072-27-51 20:10:00* Test Item Value Reference Range Interpretation Comments BUN/Creatinine Ratio (test code = 3097-3) 14 6-25 [facility] CenterEstimat Glomerular Filtration Rate 2019-03-06 20:10:00* Test Item Value Reference Range Interpretation Comments Estimat Glomerular Filtration Rate (test code = 624430207) > 60 >60 Ranges were taken from the National Kidney Disease Education Program and the [employer]ice [employer] health[employer] literature.Reference ranges:60 or greater: Hurpih04-68 ( for 3 consecutive months): Chronic kidney disease 15 or less: Kidney failureLake Granbury Medical CenterGlucose Hdxro6101-46-37 20:10:00* Test Item Value Reference Range Interpretation Comments Glucose Level (test code = CGO7241) 214 74-118 H [facility] CenterCalcium Wjuqj7835-23-57 20:10:00* Test Item Value Reference Range Interpretation Comments Calcium Level (test code = 63414-4) 10.4 8.4-10.2 H [facility] CenterTotal Rrhqtfxxy8733-09-21 20:10:00* Test Item Value Reference Range Interpretation Comments Total Bilirubin (test code = 1975-2) 0.4 0.2-1.2 [facility] CenterAspartate Amino Transf (AST/SGOT) 2019-03-06 20:10:00* Test Item Value Reference Range Interpretation Comments Aspartate Amino Transf (AST/SGOT) (test code = Aspartate Amino Transf (AST/SGOT)) 31 5-34 [facility] CenterAlanine Aminotransferase (ALT/SGPT) 2019-03-06 20:10:00* Test Item Value Reference Range Interpretation Comments Alanine Aminotransferase (ALT/SGPT) (test code = 1742-6) 44 0-55 [facility] CenterTotal Vuaktww1676-07-88 20:10:00* Test Item Value Reference Range Interpretation Comments Total Protein (test code = 2885-2) 8.4 6.5-8.1 H [facility] CenterAlbumin2019-06-19 20:10:00* Test Item Value Reference Range Interpretation Comments Albumin (test code = 1751-7) 4.3 3.5-5.0 [facility] CenterGlobulin2019-06-19 20:10:00* Test Item Value Reference Range Interpretation Comments Globulin (test code = 67174-0) 4.1 2.3-3.5 H [facility] CenterAlbumin/Globulin Ymomn2241-01-87 20:10:00 * Test Item Value Reference Range Interpretation Comments Albumin/Globulin Ratio (test code = 1759-0) 1.0 0.8-2.0 [facility] CenterAlkaline Zsndairzbik3708-21-64 20:10:00* Test Item Value Reference Range Interpretation Comments Alkaline Phosphatase (test code = 6768-6) 124 40-150 [facility] CenterUrine Rdmcg4594-81-98 20:09:00* Test Item Value Reference Range Interpretation Comments Urine Color (test code = 5778-6) ORANGE YELLOW H [facility] CenterUrine Vvnlzot8218-87-16 20:09:00* Test Item Value Reference Range Interpretation Comments Urine Clarity (test code = 42810-3) CLOUDY CLEAR H [facility] CenterUrine Specific Hvsnmkk6151-21-20 20:09:00 * Test Item Value Reference Range Interpretation Comments Urine Specific [place] (test code = 5811-5) 1.010 1.010-1.02 5 [facility] CenterUrine zH8001-11-75 20:09:00* Test Item Value Reference Range Interpretation Comments Urine pH (test code = 37739-3) 6.5 5-7 [facility] CenterUrine Leukocyte Stlkztha0162-59-56 20:09:00* Test Item Value Reference Range Interpretation Comments Urine Leukocyte Esterase (test code = 05228-5) SMALL NEGATIV E [facility] CenterUrine Mdynsgm1430-06-17 20:09:00* Test Item Value Reference Range Interpretation Comments Urine Nitrite (test code = 18643-9) POSITIVE NEGATIVE H [facility] CenterUrine Yasulni7466-47-80 20:09:00* Test Item Value Reference Range Interpretation Comments Urine Protein (test code = 78824-4) 2+ NEGATIVE H [facility] CenterUrine Glucose (UA)2019-03-06 20:09:00* Test Item Value Reference Range Interpretation Comments Urine Glucose (UA) (test code = 51361-7) 1+ NEGATIVE H [facility] CenterUrine Lpwqnad4315-31-13 20:09:00* Test Item Value Reference Range Interpretation Comments Urine Ketones (test code = 84031-7) TRACE NEGATIVE H [facility] Bvyitazxlkpy1118-01-28 20:09:00* Test Item Value Reference Range Interpretation Comments Urine Urobilinogen (test code = 07389-5) 4 0.2-1 [facility] CenterUrine Ffmzljdft6808-55-18 20:09:00* Test Item Value Reference Range Interpretation Comments Urine Bilirubin (test code = 1977-8) NEGATIVE NEGATIVE [facility] CenterUrine Ljyqe6938-14-34 20:09:00* Test Item Value Reference Range Interpretation Comments Urine Blood (test code = 45292-7) 3+ NEGATIVE [facility] CenterWhite Blood Vggmb6818-93-19 19:49:00* Test Item Value Reference Range Interpretation Comments White Blood Count (test code = 6690-2) 20.82 4.8-10.8 H [facility] CenterRed Blood Hfecb9791-38-32 19:49:00* Test Item Value Reference Range Interpretation Comments Red Blood Count (test code = 789-8) 5.68 3.6-5.1 H [facility] CenterHemoglobin2019-06-19 19:49:00* Test Item Value Reference Range Interpretation Comments Hemoglobin (test code = 42172-9) 14.7 12.0-16.0 [facility] CenterHematocrit2019-06-19 19:49:00* Test Item Value Reference Range Interpretation Comments Hematocrit (test code = 4544-3) 43.5 34.2-44.1 [facility] CenterMean Corpuscular Kwlfcs1524-08-59 19:49:00* Test Item Value Reference Range Interpretation Comments Mean Corpuscular Volume (test code = 787-2) 76.6 81-99 L [facility] CenterMean Corpuscular Dlihpqyhkq2938-50-11 19:49:00* Test Item Value Reference Range Interpretation Comments Mean Corpuscular Hemoglobin (test code = 785-6) 25.9 28-32 [facility] Corpuscular Hemoglobin Concent 2019-03-06 19:49:00* Test Item Value Reference Range Interpretation Comments Mean Corpuscular Hemoglobin Concent (test code = 786-4) 33.8 31-35 [facility] CenterRed Cell Distribution Lcbqv0228-88-92 19:49:00* Test Item Value Reference Range Interpretation Comments Red Cell Distribution Width (test code = 69546-2) 12.7 11.7 -14.4 [facility] CenterPlatelet Kciwk6363-05-24 19:49:00* Test Item Value Reference Range Interpretation Comments Platelet Count (test code = 777-3) 358 140-360 [facility] CenterNeutrophils (%) (Auto)2019-03-06 19:49:00 * Test Item Value Reference Range Interpretation Comments Neutrophils (%) (Auto) (test code = 03866-3) 83.7 38.7-80.0 H [facility] CenterLymphocytes (%) (Auto)2019-03-06 19:49:00 * Test Item Value Reference Range Interpretation Comments Lymphocytes (%) (Auto) (test code = 736-9) 9.1 18.0-39.1 L [facility] CenterMonocytes (%) (Auto)2019-03-06 19:49:00* Test Item Value Reference Range Interpretation Comments Monocytes (%) (Auto) (test code = 5905-5) 4.3 4.4-11.3 L [facility] CenterEosinophils (%) (Auto)2019-03-06 19:49:00 * Test Item Value Reference Range Interpretation Comments Eosinophils (%) (Auto) (test code = 713-8) 1.8 0.0-6.0 [facility] CenterBasophils (%) (Auto)2019-03-06 19:49:00* Test Item Value Reference Range Interpretation Comments Basophils (%) (Auto) (test code = 706-2) 0.4 0.0-1.0 [facility] CenterIM GRANULOCYTES %2019-03-06 19:49:00* Test Item Value Reference Range Interpretation Comments IM GRANULOCYTES % (test code = IM GRANULOCYTES %) 0.7 0.0- 1.0 [facility] CenterNeutrophils # (Auto)2019-03-06 19:49:00* Test Item Value Reference Range Interpretation Comments Neutrophils # (Auto) (test code = 751-8) 17.4 2.1-6.9 H [facility] CenterLymphocytes # (Auto)2019-03-06 19:49:00* Test Item Value Reference Range Interpretation Comments Lymphocytes # (Auto) (test code = 62432-3) 1.9 1.0-3.2 [facility] CenterMonocytes # (Auto)2019-03-06 19:49:00* Test Item Value Reference Range Interpretation Comments Monocytes # (Auto) (test code = 742-7) 0.9 0.2-0.8 H [facility] CenterEosinophils # (Auto)2019-03-06 19:49:00* Test Item Value Reference Range Interpretation Comments Eosinophils # (Auto) (test code = 711-2) 0.4 0.0-0.4 [facility] CenterBasophils # (Auto)2019-03-06 19:49:00* Test Item Value Reference Range Interpretation Comments Basophils # (Auto) (test code = 704-7) 0.1 0.0-0.1 [facility] CenterAbsolute Immature Granulocyte (auto 2019-03-06 19:49:00* Test Item Value Reference Range Interpretation Comments Absolute Immature Granulocyte (auto (gary t code = Absolute Immature Granulocyte (auto) 0.15 0-0.1 H [facility]
[2020-02-14] MEDS: ONDANSETRON HCL INJ 2MG/ML 2ML 2 MG/ML VIAL IV PRN ×3 (05:00→13:45)
[2020-02-14] MEDS: MORPHINE SULFATE 2 MG/ML SYR 1ML IV PRN ×4 (05:00→23:45)
[2020-02-14] MEDS: PIPER-TAZ 3.375 GM / NS 50ML IV SCH ×3 (06:00→22:00)
[2020-02-14] MEDS ORDERED: ACETAMINOPHEN 325 MG TAB PO PRN (08:45)
[2020-02-14] MEDS ORDERED: DOCUSATE SODIUM 100 MG CAP PO PRN (08:45)
--- NOTE | 2020-02-14 08:45 | NUR ---
H&P cc: abdominal pain HPI: 39yoF, PCP none developed abdominal pain in RUQ. found to have acute cholecystitis and cholelithiasis. PMH: obesity PSHx: hysterectomy, Allergies; see emr Fh/SH; ; no cigs meds; see MAR ROS; no f/c/s/D/FONSECA/cp/sob/skin rash/back pain/focal limb weakness/confusion v/s revd PE tired appearing anicteric ns1s2 mod bs soft; tender RUQ; no leg edema skin dry flat affect labs/meds revd A/P: 39yoF Acute cholecystitis- will need lap nikolas Cholelithiasis- check MRCP to ensure no stones in CBD. Obesity- caloric restriction important BMI 32.9- as above Prop: scd; pepcid dispo: sx consult; MRCP order Jeremiah Sneed MD, PhD.
[2020-02-14] MEDS: FAMOTIDINE 20 MG/2 ML VIAL IV SCH ×2 (10:21→16:49)
[2020-02-14 10:43] LABS: CHOL/HDL RATIO 2.9 (3.0-3.6)
--- NOTE | 2020-02-14 12:33 | Diagnostic Imaging Report ---
MRCP (magnetic resonance cholangiopancreatography) HISTORY: Acute cholecystitis Comparison: CT abdomen and pelvis 02/13/2020 Technique: Multiplanar and multisequence MRI images of the abdomen were obtained without contrast. Three-dimensional reconstructed images of the biliary tree are also reviewed. FINDINGS: The common bile duct appears normal in caliber. No intrahepatic biliary dilation. No pancreatic ductal dilation. No intrinsic or extrinsic defect is identified within the biliary system. Numerous rounded T2 hypointense defects are seen within the gallbladder, consistent with cholelithiasis. The gallbladder appears distended, with mild concentric wall thickening and mild pericholecystic fluid. No mass is identified in the region of the ampulla or pancreatic head. The liver demonstrates diffuse signal dropout between T1 in and out of phase images, consistent with diffuse fatty infiltration. No hepatic mass or intrahepatic biliary dilation is appreciated. Unremarkable appearance of the pancreas, spleen, adrenal glands, and kidneys. The visualized bowel loops appear normal in caliber. No free fluid or lymphadenopathy is seen within the abdomen. Impression: 1. No evidence of biliary obstruction. 2. Cholelithiasis, with findings concerning for acute cholecystitis. 3. Diffuse fatty infiltration of the liver. Signed by: Jose Lane MD on 02/14/2020 12:29 PM
[2020-02-14] MEDS ORDERED: BUPIVACAINE 0.25%/EPI 30ML SDV INJ ONE (16:43)
[2020-02-14] MEDS ORDERED: METOCLOPRAMIDE HCL 10 MG/2ML VIAL ONE (19:16)
[2020-02-14] MEDS ORDERED: ONDANSETRON HCL INJ 2MG/ML 2ML 2 MG/ML VIAL ONE (19:16)
--- NOTE | 2020-02-14 20:04 | NUR ---
PT IS TRANSFERRED FROM OR PT HAD LAP DEVIN . ABD SITES WITH BAND AID AND 5 THE SITE WITH ELEAZAR DRAINAGE .DENIES PAIN AND VOMITING AT THIS TIME RESPIRATIONS ARE EVEN AND UNLABORED .CALL LIGHT WITH IN REACH .CONTINUE TO MONITOR
[2020-02-14] MEDS ORDERED: ZOLPIDEM TARTRATE 5 MG TAB PO PRN (21:00)
[2020-02-15] VITALS (8 sets, daily range): BP systolic 91–115; BP diastolic 61–70
--- NOTE | 2020-02-15 02:03 | Operative Report ---
DATE OF PROCEDURE: 02/14/2020 SURGEON: Yves Goodman MD PREOPERATIVE DIAGNOSIS: Cholecystitis. POSTOPERATIVE DIAGNOSIS: Acute cholecystitis. OPERATIVE PROCEDURE: Laparoscopic cholecystectomy. ANESTHESIA: General, Dr. Hou. TRAVEL SALES CONSULTANT: [place]. INDICATION: The patient is a 39-year-old female with abdominal pain and gallstone with thickened gallbladder wall on CT scan with gallstones. MRCP showed no bile duct stone. The patient consented for laparoscopic cholecystectomy. Attendant risks discussed. PROCEDURE FINDINGS: Acute cholecystitis with multiple gallstones with a fatty liver. DESCRIPTION OF PROCEDURE: The patient was brought to the OR, intubated. Abdomen was prepped and draped in sterile fashion. The left upper quadrant direct port accessed using laparoscope, it was carried under direct vision. After insufflation, we encountered the substantial adhesions with bowel and omentum adherent to the midline abdominal wall from prior . At this point, other ports were placed in the right upper quadrant and mid epigastric and supraumbilical region. Gallbladder completely distended and covered by omentum. Blunt dissection carried out to expose the fundus. It was then decompressed with a needle revealing yellow bowel. The fundus then retracted cephalad direction. The neck of the gallbladder retracted laterally with blunt dissection, we isolated cystic artery triply clipped and divided. The cystic duct was also isolated and the junction of the common bile duct was noted, before triple clipping the cystic duct and divided between clips. The gallbladder detached from the liver with cautery and taken out through the umbilical incisions using the Endo pouch. Operative field was irrigated with copious saline solution. Hemostasis achieved and a 15-[place] Dc drain placed in the [place] pouch and taken out through the right upper quadrant port site. All other ports removed under direct vision. Fascia was closed with 0 Vicryl and skin was closed with subcuticular stitch. The patient was extubated and transported to recovery room. BLOOD LOSS: 30 mL. Yves Goodman MD DNL/MODL /[id number]
[2020-02-15] MEDS: PIPER-TAZ 3.375 GM / NS 50ML IV SCH ×3 (05:35→22:00)
[2020-02-15] MEDS: MORPHINE SULFATE 2 MG/ML SYR 1ML IV PRN ×4 (05:39→20:52)
--- NOTE | 2020-02-15 06:35 | NUR ---
PT C/O PAIN AND GIVEN ORDERED PAIN MEDICATION .CALL LIGHT WITH IN REACH .CONTINUE TO MONITOR
--- NOTE | 2020-02-15 07:00 | NUR ---
BEDSIDE SHIFT REPORT FROM RN LICI. PT DENIES NEEDS AT THIS TIME.
--- NOTE | 2020-02-15 07:11 | NUR ---
BEDSIDE REPORT GIVEN TO THE ONCOMING NURSE
[2020-02-15] MEDS: FAMOTIDINE 20 MG/2 ML VIAL IV SCH ×2 (09:29→17:50)
[2020-02-15] MEDS: ONDANSETRON HCL INJ 2MG/ML 2ML 2 MG/ML VIAL IV PRN ×3 (09:49→20:52)
--- NOTE | 2020-02-15 17:43 | NUR ---
IM- progress note O/N see below ROS; no f/c/s/D/FONSECA/cp/sob/skin rash/back pain/focal limb weakness/confusion v/s revd PE tired appearing anicteric ns1s2 mod bs soft; tender RUQ; dressing in place; ELEAZAR drain in place; no leg edema skin dry flat affect labs/meds revd A/P: 39yoF Acute cholecystitis- will need lap nikolas Cholelithiasis- check MRCP to ensure no stones in CBD. Obesity- caloric restriction important BMI 32.9- as above Prop: scd; pepcid dispo: sx consult; MRCP order 5-30 s/p lap nikolas; drain placed; on diet; Jeremiah Sneed MD, PhD.
--- NOTE | 2020-02-15 20:13 | NUR ---
RECEIVED PT IN BED AOX3 .PT HAS IV AT LEFT WRIST 20 G S/L BANAID X4 TO THE ABD AND RT SIDE ELEAZAR DRAINAGE CALL LIGHT WITH IN REACH
[2020-02-16] VITALS: BP 100/68
[2020-02-16] MEDS: ONDANSETRON HCL INJ 2MG/ML 2ML 2 MG/ML VIAL IV PRN ×2 (02:46→06:51)
[2020-02-16] MEDS: MORPHINE SULFATE 2 MG/ML SYR 1ML IV PRN ×2 (02:46→06:51)
[2020-02-16 04:00] VITALS: BP 120/77
[2020-02-16] MEDS: PIPER-TAZ 3.375 GM / NS 50ML IV SCH (05:56)
--- NOTE | 2020-02-16 07:00 | NUR ---
BEDSIDE SHIFT REPORT FROM RN LICI. PT DENIES NEEDS AT THIS TIME.
--- NOTE | 2020-02-16 07:05 | NUR ---
BEDSIDE REPORT GIVEN TO THE ONCOMING NURSE
[2020-02-16 08:07] VITALS: BP 111/67
[2020-02-16 08:22] VITALS: BP 111/67
[2020-02-16] MEDS: FAMOTIDINE 20 MG/2 ML VIAL IV SCH (09:29)
[2020-02-16 09:50] LABS: BASOPHILS # (AUTO) 0.1 (0.0-0.1); BASOPHILS % 0.8 % (0.0-1.0); EOSINOPHILS # (AUTO) 0.3 (0.0-0.4); EOSINOPHILS % 2.5 % (0.0-6.0); HEMATOCRIT 38.1 % (34.2-44.1); LYMPHOCYTES # (AUTO) 2.6 (1.0-3.2); MEAN CORPUSCULAR HEMOGLOBIN 24.9 pg (28-32); MEAN CORPUSCULAR HGB CONC 31.5 g/dL (31-35); MONOCYTES # (AUTO) 0.7 (0.2-0.8); MONOCYTES % 6.9 % (4.4-11.3); NEUTROPHILS # (AUTO) 6.3 (2.1-6.9); NEUTROPHILS % 63.2 % (38.7-80.0); PLATELET COUNT 328 x10e3/uL (140-360); RED BLOOD COUNT 4.82 x10e6/uL (3.6-5.1)
[2020-02-16 10:10] LABS: ANION GAP 13.8 mmol/L (8-16); BLOOD UREA NITROGEN 10 mg/dL (7-26); BUN/CREATININE RATIO 12 (6-25); CALCIUM 9.2 mg/dL (8.4-10.2); CARBON DIOXIDE 24 mmol/L (22-29); CHLORIDE 106 mmol/L (98-107); CREATININE, SERUM 0.83 mg/dL (0.57-1.11); EST GLOMERULAR FILTRATION RATE > 60 ML/MIN (60-); GLUCOSE 215 mg/dL (74-118); PHOSPHORUS 3.8 MG/DL (2.3-4.7); POTASSIUM 3.8 mmol/L (3.5-5.1); SODIUM 140 mmol/L (136-145)
--- NOTE | 2020-02-16 11:08 | NUR ---
Called and spoke with Dr. Sneed regarding discharge clearance and discharge order. Dr. Sneed gave clearance for the patient to discharge home. RN notified.
== END 2020-02-16 11:39 | disposition home or self-care (01) | DRG 419 ==
LOC: ER 20:38 → ERHOLD 02-14 01:58 → MED/SURG3 02-14 03:23
PROVIDERS: ADMIT Internal Medicine; ATTEND Internal Medicine
PROC: 0FT44ZZ Resection of Gallbladder, Percutaneous Endoscopic Approach (ICD-10-PCS; principal; 2020-02-14 14:00)
DX: K80.00 Calculus of gallbladder with acute cholecystitis without obstruction (principal); E66.9 Obesity, unspecified; Z68.32 Body mass index [BMI] 32.0-32.9, adult
CPT/HCPCS: 36415; 74177; 74181; 80048; 80053; 80061; 81001; 82550; 82553; 83036; 83605; 83690; 83735; 84100; 84484; 85025; 87040; 87635; 88304; 93005; 96374; 96375; 99284; J2270; J2405; J2543; J2765; J3010; J7030; Q9967